=== PATIENT | female | born 1960 | race Caucasian/White ===

== ENCOUNTER 2018-04-15 19:02 | Emergency (ER) | payer MEDICARE, MEDICAID ==
[~2018-04-15 19:02] MED LIST: ALBU8.5H IH; ATEN-65 PO; BUPR-474 PO; CHOL10005 PO; CLON-1 PO; CYCL10TA29 PO; DIA5 PO; DICL-192 PO; ESCI20TA38 PO; FENO130C PO; FLUT1DIS27 INH; GABA-503 PO; GABA-549 PO; HYDR-2966 PO; HYDR-319 PO; HYDR-4305 PO; HYDR12.556 PO; IBUP800T37 PO; KET10 PO; LEVO-3 PO; LEVO88TA45 PO; LIO25 PO; METF-1 PO; METF-421 PO; METH-542 PO; METO25TA23 PO; OSE75 PO; OXYC-374 PO; OXYC-865 PO; PROM5SYR PO; QUET50TA24 PO; SIMV-49 PO; SIMV10TA98 PO; TRAZ50TA34 PO
--- NOTE | 2018-04-15 19:22 | ER Report ---
History and Physical Time Seen By MD: 19:06 Hx. of Stated Complaint: Pt fell off back of couch yesterday and states she landed on back. No LOC before or after fall. Pt reports current narcotic tx plan and nerve stimulator are not adressing pain. Pt also states she fell in bathtub 3 days ago. HPI/ROS CHIEF COMPLAINT: Back and neck injury HISTORY OF PRESENT ILLNESS: She and is a 58-year-old female who presents the ED with complaint of back and neck injury that occurred yesterday. She states that she was up on the armrest of her couch and chair putting up curtains and fell backwards onto her back. She states that she primarily has pain in her mid and lower back but is also complaining of some neck pain. She believes that she might of hit her head as well. She denies any LOC, nausea, vomiting, dizziness, vision changes. She states that she has chronic numbness and tingling of her bilateral hands. She states that she does have chronic back pain and does see a pain specialist. She states she has taken 2 oxycodone with no relief of her pain. She denies any bowel or bladder incontinence. REVIEW OF SYSTEMS: Constitutional: No fever, no chills. Eyes: No discharge. ENT: No sore throat. Cardiovascular: No chest pain, no palpitations. Respiratory: No cough, no shortness of breath. Gastrointestinal: No abdominal pain, no vomiting. Genitourinary: No hematuria. Musculoskeletal: See history of present illness. Skin: No rashes. Neurological: See history of present illness. Allergies: Coded Allergies: naproxen (Verified Allergy, Mild, TACHYCARDIA, 08/04/17) morphine (Unverified Allergy, Unknown, 08/04/17) ITCHING Home Meds Active Scripts Atenolol (ATENOLOL) 25 Mg Tablet, 1 TAB PO QDAY, #30 TAB 0 Refills Prov:CHARISSA DONALD MD 04/21/17 Reported Medications Levothyroxine Sodium (LEVOTHYROXINE SODIUM) 75 Mcg Tablet, 75 MCG PO QDAY, TAB 04/15/18 Quetiapine Fumarate (SEROQUEL XR) 150 Mg Tab.er.24h, 150 MG PO 04/15/18 Fenofibrate Nanocrystallized (FENOFIBRATE) 145 Mg Tablet, 145 MG PO QDAY 04/15/18 Metoprolol Succinate (METOPROLOL SUCCINATE) 25 Mg Tab.er.24h, 1 TAB PO QDAY, TAB 08/04/17 Cholecalciferol (Vitamin D3) (VITAMIN D3) 1,000 Unit Tablet, 1000 UNIT PO, TAB 08/04/17 Methocarbamol (ROBAXIN) 500 Mg Tablet, 1500 MG PO TID 08/04/17 Oxycodone Hcl/Acetaminophen (OXYCODON-ACETAMINOPHEN 7.5-325) 1 Each Tablet, 1 EACH PO Q6H Y for PAIN, TAB 04/21/17 Hydrochlorothiazide (HYDROCHLOROTHIAZIDE) 25 Mg Tablet, 1 TAB PO QDAY, TAB 04/26/16 Fluticasone/Salmeterol (ADVAIR 100-50 DISKUS) 1 Each Disk.w.dev, 1 PUFF INH QAM , #60 04/26/16 Gabapentin (GABAPENTIN) 300 Mg Capsule, 1500 MG PO QHS, CAPSULE 04/26/16 Gabapentin (GABAPENTIN) 300 Mg Capsule, 300 MG PO QAM, CAPSULE 04/26/16 Simvastatin (SIMVASTATIN) 20 Mg Tablet, 20 MG PO HS, TAB 04/26/16 Metformin Hcl (METFORMIN HCL) 1,000 Mg Tablet, 1 TAB PO BID, TAB 04/26/16 Escitalopram Oxalate (LEXAPRO) 20 Mg Tablet, 20 MG PO QDAY 10/17/15 Albuterol Sulfate 90 Mcg/Act (PROAIR HFA 90 MCG/ACT) 8.5 Gm Hfa.aer.ad, 1-2 PUFF IH 3-4XD 08/26/15 Trazodone Hcl (TRAZODONE HCL) 50 Mg Tablet, 50 MG PO QHS 08/26/15 Clonazepam (KLONOPIN) 1 Mg Tablet, 1 MG PO BID, #7 TAB 08/26/15 Bupropion Hcl (WELLBUTRIN XL) 300 Mg Tab.er.24h, 300 MG PO QDAY, TAB 08/26/15 Liothyronine Sodium (LIOTHYRONINE SODIUM) 25 Mcg Tablet, 25 MCG PO DAILY 08/26/15 Discontinued Reported Medications Levothyroxine Sodium (LEVOTHYROXINE SODIUM) 88 Mcg Tablet, 0.05 MCG PO QDAY 04/26/16 Quetiapine Fumarate (SEROQUEL XR) 50 Mg Tab.er.24h, 100 MG PO DAILY 11/30/15 Fenofibrate,Micronized (FENOFIBRATE) 130 Mg Capsule, 130 MG PO QDAY, CAPSULE 08/26/15 Discontinued Scripts Ketorolac Tromethamine (KETOROLAC TROMETHAMINE) 10 Mg Tab, 10 MG PO Q6H Y for PAIN, #12 TAB 0 Refills Prov:CHARISSA DONALD MD 01/19/17 Reviewed Nurses Notes: Yes Old Medical Records Reviewed: Yes Hx Smoking: Yes (1/3 ppd) Smoking Status: Current: Every Day Smoker Exposure to Second Hand Smoke?: Yes Hx Substance Use Disorder: No (COCAINE ABUSE 26 YEARS AGO) Hx Alcohol Use: No (ALCOHOL ABUSE 26 YRS AGO) Constitutional Vital Sign - Last 24 Hours 04/15/18 04/15/18 04/15/18 04/15/18 19:03 19:07 19:17 19:47 Temp 98.2 Pulse 85 73 72 Resp 16 B/P (MAP) 117/85 (96) 117/85 Pulse Ox 90 90 89 O2 Delivery Room Air 04/15/18 20:02 Pulse Ox 89 Physical Exam General Appearance: The patient is alert, has no immediate need for airway protection and no signs of toxicity. Patient appears to be in no acute distress. Eyes: Pupils equal and round no pallor or injection. ENT, Mouth: Mucous membranes are moist. Respiratory: There are no retractions, lungs are clear to auscultation. Cardiovascular: Regular rate and rhythm. Gastrointestinal: Abdomen is soft and non tender, no masses, bowel sounds normal. Neurological: Cranial nerves II through XII intact. Normal Romberg. Normal finger to nose test bilaterally. Skin: Warm and dry, no rashes. Musculoskeletal: Neck is supple non tender. There is left paravertebral lumbar, thoracic, cervical spine tenderness with palpation. No real midline tenderness appreciated. No ecchymosis or swelling noted. Equivocal bilateral straight leg raise test. 2+ patellar reflexes bilaterally. DIFFERENTIAL DIAGNOSIS: After history and physical exam differential diagnosis was considered for back pain including but not limited to muscular pain, herniated disc, spine fracture, intra-abdominal causes and urinary tract infection. Medical Decision Making EKG/Imaging Imaging C-Spine Xrays: IMPRESSION: 1. No acute osseous findings along the cervical spine. 2. Chronic degenerative changes, greatest at C5-C6 and C6-C7. Report Dictated By: Oh Lovell MD at 04/15/2018 7:56 PM Report E-Signed By: Oh Lovell MD at 04/15/2018 8:05 PM T and L Spine Xrays: IMPRESSION: 1. No acute osseous or acute alignment abnormality of the thoracic and lumbar spine. 2. Stable mild T12 vertebral compression fracture and diffuse multilevel degenerative disc space disease ED Course/Re-evaluation ED Course Will obtain lumbar, thoracic, cervical spine x-rays. Rudolph Head CT Rule = 0 = Unneccessary for Head CT NEXXUS Criteria for Cervical Spine = 0 = Unneccessary for CT C-Spine 04/15/2018 8:28:21 pm - discussed all x-ray results with patient. There is no acute fracture noted. There are some chronic degenerative changes and old compression fracture appreciated at T12. Advised that she may continue her oxycodone and Robaxin at home. Decision to Disposition Date: Apr 15, 2018 Decision to Disposition Time: 20:28 Depart Departure Latest Vital Signs Vital Signs Date Time Temp Pulse Resp B/P (MAP) Pulse Ox O2 Delivery O2 Flow Rate FiO2 04/15/18 20:02 89 04/15/18 19:47 72 04/15/18 19:07 98.2 16 117/85 Room Air Impression: Primary Impression: Low back pain Additional Impression: Neck pain Condition: Improved Disposition: HOME OR SELF-CARE Referrals: ALBERTO KANG DO (PCP) Patient Instructions: Back Pain (ED), Neck Pain (ED) Additional Instructions: Rest, ice, heat. Follow-up with primary care provider in 2-3 days. If having any worsening or concerning symptoms may return to the emergency department. May continue oxycodone and Robaxin at home. Problem Qualifiers Primary Impression: Low back pain Chronicity: unspecified Back pain laterality: left Sciatica presence: without sciatica Qualified Codes: M54.5 - Low back pain TAMMIE CASE PA-C Apr 15, 2018 19:22
[2018-04-15] MEDS ORDERED: QUET150T3 PO (19:49)
[2018-04-15] MEDS ORDERED: LEVO75TA73 PO (19:49)
[2018-04-15] MEDS ORDERED: FENO145T36 PO (19:49)
--- NOTE | 2018-04-15 20:10 | RADIOLOGY IMAGING REPORT ---
FACILITY: [facility] - [place] PATIENT NAME: Vita Pandey : 1960 MR: [id number] V: [id number] EXAM DATE: ORDERING PHYSICIAN: TAMMIE CASE TECHNOLOGIST: Location: [facility] - [place] Patient: Vita Pandey : 1960 Visit/Account:[id number] Date of Sevice: 04/15/2018 EXAMINATION: Cervical Spine 3 views HISTORY: Fall. Neck pain and back pain. COMPARISON: None. FINDINGS: No radiographic evidence of acute fracture or subluxation in the cervical spine. Normal alignment. Ve rtebral body height is maintained. Chronic multilevel degenerative changes. There is moderate disc space narrowing at C5-C6 and C6-C7, w ith endplate osteophyte formation. Mild disc space narrowing at C2-C3. Mild facet arthropathy along t he cervical facet joints. The dens appears radiographically intact. No prevertebral soft tissue swelling. IMPRESSION: 1. No acute osseous findings along the cervical spine. 2. Chronic degenerative changes, greatest at C5-C6 and C6-C7. Report Dictated By: Oh Lovell MD at 04/15/2018 7:56 PM Report E-Signed By: Oh Lovell MD at 04/15/2018 8:05 PM WSN:[id number]
--- NOTE | 2018-04-15 20:20 | RADIOLOGY IMAGING REPORT ---
FACILITY: [facility] - [place] PATIENT NAME: Vita Pandey : 1960 MR: [id number] V: [id number] EXAM DATE: ORDERING PHYSICIAN: TAMMIE CASE TECHNOLOGIST: [place] [facility] [place]: Vita Pandey : 1960 Visit/Account:[id number] Date of Sevice: 04/15/2018 LUMBAR SPINE 2 OR 3 VIEW, THORACIC SPINE 3 VIEWS Indication: Back pain., fall yesterday, back and neck pain Comparison: 09/16/2017 FINDINGS: Thoracic spine: The vertebral body heights and disc spaces are well maintained, there is a mild chronic compression d eformity of T12. Mid thoracic spinal stimulator is present.. There is no acute osseous or acute alignment abnormality. Mild marginal anterior osteophytes seen throughout the thoracic spine. Lumbar spine: There are 5 lumbar type vertebral bodies. There is no acute osseous or acute alignment abnormality. Moderate diffuse multilevel degenerative disc space disease is present. The vertebral body heights appear well-maintained. IMPRESSION: 1. No acute osseous or acute alignment abnormality of the thoracic and lumbar spine. 2. Stable mild T12 vertebral compression fracture and diffuse multilevel degenerative disc space dise ase Report Dictated By: Nam Vegas at 04/15/2018 8:01 PM Report E-Signed By: Nam Vegas at 04/15/2018 8:17 PM WSN:[id number]
--- NOTE | 2018-04-15 20:21 | RADIOLOGY IMAGING REPORT ---
FACILITY: [facility] PATIENT NAME: Vita Pandey : 1960 MR: [id number] V: [id number] EXAM DATE: ORDERING PHYSICIAN: TAMMIE CASE TECHNOLOGIST: Location: [facility] Patient: Vita Pandey : 1960 Visit/Account:[id number] Date of Sevice: 04/15/2018 LUMBAR SPINE 2 OR 3 VIEW, THORACIC SPINE 3 VIEWS Indication: Back pain., fall yesterday, back and neck pain Comparison: 09/16/2017 FINDINGS: Thoracic spine: The vertebral body heights and disc spaces are well maintained, there is a mild chronic compression d eformity of T12. Mid thoracic spinal stimulator is present.. There is no acute osseous or acute alignment abnormality. Mild marginal anterior osteophytes seen throughout the thoracic spine. Lumbar spine: There are 5 lumbar type vertebral bodies. There is no acute osseous or acute alignment abnormality. Moderate diffuse multilevel degenerative disc space disease is present. The vertebral body heights appear well-maintained. IMPRESSION: 1. No acute osseous or acute alignment abnormality of the thoracic and lumbar spine. 2. Stable mild T12 vertebral compression fracture and diffuse multilevel degenerative disc space dise ase Report Dictated By: Nam Vegas at 04/15/2018 8:01 PM Report E-Signed By: Nam Vegas at 04/15/2018 8:17 PM WSN:[id number]
[2018-04-15 20:36] VITALS: BP 114/68
== END 2018-04-15 20:37 | disposition home or self-care (01) ==
LOC: ER 19:09
DX: M54.5 Low back pain (principal); M54.2 Cervicalgia
CPT/HCPCS: 72040; 72072; 72100; 99283

== ENCOUNTER 2018-04-19 05:21 | Emergency (ER) | payer MEDICARE, MEDICAID ==
[~2018-04-19 05:21] MED LIST changes: +FENO145T36 PO; +LEVO75TA73 PO; +QUET150T3 PO
--- NOTE | 2018-04-19 05:24 | ER Report ---
History and Physical Time Seen By MD: 05:23 HPI/ROS CHIEF COMPLAINT: Headache, C-spine tenderness, right knee and right ankle pain HISTORY OF PRESENT ILLNESS: Patient is a 58-year-old female here status post fall yesterday at approximately 1500 hrs. while attempting to walk down steps into her house. Patient reportedly tripped and fell forward hitting her forehead on a door without loss of consciousness. Patient reports having neck tenderness, headache, right knee pain, right ankle pain which has prevented her from sleeping. Patient denies any focal neurological deficits, fevers, chest pain, shortness of breath, vomiting, abdominal pain, paresthesias. Patient reportedly fell several days ago off of her couch onto her back REVIEW OF SYSTEMS: Constitutional: No fever, no chills. Eyes: No discharge. ENT: No sore throat. Cardiovascular: No chest pain, no palpitations. Respiratory: No cough, no shortness of breath. Gastrointestinal: No abdominal pain, no vomiting. Genitourinary: No hematuria. Musculoskeletal: + neck and back pain, + right knee and ankle pain Skin: No rashes. Neurological: + headache. Allergies: Coded Allergies: naproxen (Verified Allergy, Mild, TACHYCARDIA, 08/04/17) morphine (Unverified Allergy, Unknown, 08/04/17) ITCHING Home Meds Reported Medications Levothyroxine Sodium (LEVOTHYROXINE SODIUM) 75 Mcg Tablet, 75 MCG PO QDAY, TAB 04/15/18 Quetiapine Fumarate (SEROQUEL XR) 150 Mg Tab.er.24h, 150 MG PO 04/15/18 Fenofibrate Nanocrystallized (FENOFIBRATE) 145 Mg Tablet, 145 MG PO QDAY 04/15/18 Metoprolol Succinate (METOPROLOL SUCCINATE) 25 Mg Tab.er.24h, 1 TAB PO QDAY, TAB 08/04/17 Cholecalciferol (Vitamin D3) (VITAMIN D3) 1,000 Unit Tablet, 1000 UNIT PO, TAB 08/04/17 Methocarbamol (ROBAXIN) 500 Mg Tablet, 1500 MG PO TID 08/04/17 Oxycodone Hcl/Acetaminophen (OXYCODON-ACETAMINOPHEN 7.5-325) 1 Each Tablet, 1 EACH PO Q6H Y for PAIN, TAB 04/21/17 Hydrochlorothiazide (HYDROCHLOROTHIAZIDE) 25 Mg Tablet, 1 TAB PO QDAY, TAB 04/26/16 Fluticasone/Salmeterol (ADVAIR 100-50 DISKUS) 1 Each Disk.w.dev, 1 PUFF INH QAM , #60 04/26/16 Gabapentin (GABAPENTIN) 300 Mg Capsule, 1500 MG PO QHS, CAPSULE 04/26/16 Gabapentin (GABAPENTIN) 300 Mg Capsule, 300 MG PO QAM, CAPSULE 04/26/16 Simvastatin (SIMVASTATIN) 20 Mg Tablet, 20 MG PO HS, TAB 04/26/16 Metformin Hcl (METFORMIN HCL) 1,000 Mg Tablet, 1 TAB PO BID, TAB 04/26/16 Escitalopram Oxalate (LEXAPRO) 20 Mg Tablet, 20 MG PO QDAY 10/17/15 Albuterol Sulfate 90 Mcg/Act (PROAIR HFA 90 MCG/ACT) 8.5 Gm Hfa.aer.ad, 1-2 PUFF IH 3-4XD 08/26/15 Trazodone Hcl (TRAZODONE HCL) 50 Mg Tablet, 50 MG PO QHS 08/26/15 Clonazepam (KLONOPIN) 1 Mg Tablet, 1 MG PO BID, #7 TAB 08/26/15 Bupropion Hcl (WELLBUTRIN XL) 300 Mg Tab.er.24h, 300 MG PO QDAY, TAB 08/26/15 Liothyronine Sodium (LIOTHYRONINE SODIUM) 25 Mcg Tablet, 25 MCG PO DAILY 08/26/15 Discontinued Reported Medications Levothyroxine Sodium (LEVOTHYROXINE SODIUM) 88 Mcg Tablet, 0.05 MCG PO QDAY 04/26/16 Quetiapine Fumarate (SEROQUEL XR) 50 Mg Tab.er.24h, 100 MG PO DAILY 08/26/15 Fenofibrate,Micronized (FENOFIBRATE) 130 Mg Capsule, 130 MG PO QDAY, CAPSULE 08/26/15 Discontinued Scripts Atenolol (ATENOLOL) 25 Mg Tablet, 1 TAB PO QDAY, #30 TAB 0 Refills Prov:CHARISSA DONALD MD 04/21/17 Ketorolac Tromethamine (KETOROLAC TROMETHAMINE) 10 Mg Tab, 10 MG PO Q6H Y for PAIN, #12 TAB 0 Refills Prov:CHARISSA DONALD MD 01/19/17 Hx Smoking: Yes (09/29 ppd) Smoking Status: Current: Every Day Smoker Exposure to Second Hand Smoke?: Yes Hx Substance Use Disorder: No (COCAINE ABUSE 26 YEARS AGO) Hx Alcohol Use: No (ALCOHOL ABUSE 26 YRS AGO) Constitutional Vital Sign - Last 24 Hours 04/19/18 04/19/18 04/19/18 04/19/18 05:26 05:26 05:36 06:06 Temp 98.8 Pulse 88 71 72 Resp 16 B/P (MAP) 138/86 (103) 138/86 Pulse Ox 89 86 O2 Delivery Room Air Physical Exam General Appearance: The patient is alert, has no immediate need for airway protection and no signs of toxicity. No acute distress Eyes: Pupils equal and round no pallor or injection. ENT, Mouth: Mucous membranes are moist. Respiratory: There are no retractions, lungs are clear to auscultation. Cardiovascular: Regular rate and rhythm. Gastrointestinal: Abdomen is soft and non tender, no masses, bowel sounds normal. Neurological: + headache, no focal neuro deficits Skin: + small contusion of forehead Musculoskeletal: Neck is supple + mild tenderness. Extremities are nontender, nonswollen and have full range of motion. DIFFERENTIAL DIAGNOSIS: After history and physical exam differential diagnosis was considered for contusion, fracture, concussion, dislocation Medical Decision Making EKG/Imaging Imaging See official radiology reports for further details ED Course/Re-evaluation ED Course Patient is a 58-year-old female here status post fall yesterday at approximately 1500 hrs. while attempting to walk down steps into her house. Patient reportedly tripped and fell forward hitting her forehead on a door without loss of consciousness. Patient reports having neck tenderness, headache , right knee pain, right ankle pain which has prevented her from sleeping. Patient denies any focal neurological deficits, fevers, chest pain, shortness of breath, vomiting, abdominal pain, paresthesias. Patient reportedly fell several days ago off of her couch onto her back. CT imaging of the head and C- spine were ordered due to mechanism. X-rays of the knee and right ankle were completed due to pain. Patient was given Zofran and Toradol for analgesia since the patient had driven here today. Depart Departure Latest Vital Signs Vital Signs Date Time Temp Pulse Resp B/P (MAP) Pulse Ox O2 Delivery O2 Flow Rate FiO2 04/19/18 06:06 72 86 04/19/18 05:26 98.8 16 138/86 Room Air Impression: Primary Impression: Fall Additional Impressions: Contusion Sprain Condition: Improved Disposition: HOME OR SELF-CARE Referrals: ALBERTO KANG DO (PCP) Patient Instructions: Contusion in Adults (ED), Fall Prevention (ED) Additional Instructions: Please follow-up with her family doctor in the next several days. Please read the attached literature regarding fall prevention. Please return promptly if you develop weakness, falls, worsening headache, neck pain. Problem Qualifiers BENJAMIN BAL DO Apr 19, 2018 05:24
[2018-04-19] MEDS ORDERED: ONDANSETRON 4 MG ODT TABDP SL ONE (05:40)
[2018-04-19] MEDS ORDERED: KETOROLAC 60 MG/2 ML VIAL IM ONE (05:40)
--- NOTE | 2018-04-19 07:01 | RADIOLOGY IMAGING REPORT ---
FACILITY: [facility] PATIENT NAME: Vita Pandey : 1960 MR: [id number] V: [id number] EXAM DATE: ORDERING PHYSICIAN: BENJAMIN BAL TECHNOLOGIST: Location: [facility] [place] Patient: Vita Pandey : 1960 Visit/Account:[id number] Date of Sevice: 04/19/[address] scan of the head for acute intracranial pathology. EXAMINATION: CT head/brain without contrast HISTORY: Fell TECHNIQUE: Contiguous axial images were obtained from the skull base to the vertex without intravenou s contrast. One of the following dose optimization techniques was utilized in the performance of this exam: Autom ated exposure control; adjustment of the mA and/or kV according to the patient's size; or use of an i terative reconstruction technique. Specific details can be referenced in the facility's radiology C T exam operational policy. COMPARISON STUDIES: 04/21/2017 FINDINGS: Ventricles/sulci/fissures: Midline in position and normal in configuration Masses/hemorrhage/midline shift: No hemorrhage. White matter: No white matter edema or contusion Mead-white differentiation: No cortical contusion or edema change. Extra-axial spaces: No subdural or epidural fluid collections. No subarachnoid blood Dural venous sinuses/arterial structures: Negative Skull base/calvarium: Negative Visualized mastoid air cells/paranasal sinuses: Negative IMPRESSION: Negative CT scan of the head Report Dictated By: Flaco Spivey MD at 04/19/2018 6:51 AM Report E-Signed By: Flaco Spivey MD at 04/19/2018 6:57 AM WSN:[id number]
--- NOTE | 2018-04-19 07:07 | RADIOLOGY IMAGING REPORT ---
FACILITY: [facility] - [place] PATIENT NAME: Vita Pandey : 1960 MR: [id number] V: [id number] EXAM DATE: ORDERING PHYSICIAN: BENJAMIN BAL TECHNOLOGIST: Location: [facility] - [place] Patient: Vita Pandey : 1960 Visit/Account:[id number] Date of Sevice: 04/19/2018 C-SPINE W/O CONTRAST EXAMINATION: CT cervical spine without Fall One of the following dose optimization techniques was utilized in the performance of this exam: Autom ated exposure control; adjustment of the mA and/or kV according to the patient's size; or use of an i terative reconstruction technique. Specific details can be referenced in the facility's radiology C T exam operational policy. COMPARISON STUDIES: None TECHNIQUE: Axial images were obtained from the skull base through the upper thoracic spine with IV co ntrast administration. Coronal and sagittal reformatted images were obtained from the axial source da ta. FINDINGS: Prevertebral soft tissues: Negative Alignment: Loss of the normal cervical lordosis with a maximal kyphotic curvature centered at the C5 level. There is 3 mm retrolisthesis of C fourth respect to C3 with degenerative nature. No fracture o r loosening of the posterior elements or facets. Vertebral bodies: No vertebral body compression deformities or fractures. Posterior elements: Posterior elements well-maintained with no facet fracture or disruption. There is advanced facet arthropathy noted on the right at the C3-4 level. Disc spaces: Relatively advanced disc space narrowing and degenerative changes at the C 5/6 and C6-7 levels. Visualized soft tissues anterior neck: Negative Visualized lung/mediastinum: Negative IMPRESSION: 1. Negative cervical spine for acute pathology. DJD changes as described with retrolisthesis of C fou rth respect to C3. Advanced facet arthropathy changes noted on the right at that level. Report Dictated By: Flaco Spivey MD at 04/19/2018 6:57 AM Report E-Signed By: Flaco Spivey MD at 04/19/2018 7:03 AM WSN:[id number]
--- NOTE | 2018-04-19 07:09 | RADIOLOGY IMAGING REPORT ---
FACILITY: [facility] - [place] PATIENT NAME: Vita Pandey : 1960 MR: [id number] V: [id number] EXAM DATE: ORDERING PHYSICIAN: BENJAMIN BAL TECHNOLOGIST: Location: [facility] Patient: Vita Pandey : 1960 Visit/Account:[id number] Date of Sevice: 04/19/2018 ANKLE 3 VIEW MIN RIGHT HISTORY: fall Three-view examination the right ankle. FINDINGS: No acute fracture. The distal right tibia and fibular well-maintained. Ankle mortise intact. No talar dome osteochondral defect. Old well-corticated probable avulsion from the distal fibula. Talus, calc aneus and mid foot structures well-maintained. Small degenerative dorsal spurring change at the tarso metatarsal articulation. Small plantar spurring change noted. IMPRESSION: 1. Negative right ankle for acute bony pathology. Report Dictated By: Flaco Spivey MD at 04/19/2018 7:03 AM Report E-Signed By: Flaco Spivey MD at 04/19/2018 7:05 AM WSN:[id number]
--- NOTE | 2018-04-19 07:10 | RADIOLOGY IMAGING REPORT ---
FACILITY: [facility] - [place] PATIENT NAME: Vita Pandey : 1960 MR: [id number] V: [id number] EXAM DATE: ORDERING PHYSICIAN: BENJAMIN BAL TECHNOLOGIST: Location: [facility] - [place] Patient: Vita Pandey : 1960 Visit/Account:[id number] Date of Sevice: 04/19/2018 KNEE 3 VIEW RIGHT HISTORY: fall Three-view examination of the right knee. FINDINGS: No acute bony pathology. Distal femur and proximal tibia/fibular well-maintained. Patellas well-maint ained with no patellar fracture. No joint effusion. Soft tissues unremarkable. IMPRESSION: 1. Negative right knee Report Dictated By: Flaco Spivey MD at 04/19/2018 7:05 AM Report E-Signed By: Flaco Spivey MD at 04/19/2018 7:06 AM WSN:[id number]
[2018-04-19] MEDS ORDERED: IBUPROFEN 600 MG TAB PO ONE (07:30)
[2018-04-19 07:32] VITALS: BP 101/72
== END 2018-04-19 07:36 | disposition home or self-care (01) ==
LOC: ER 05:25
DX: S00.83XA Contusion of other part of head, initial encounter (principal); W10.8XXA Fall (on) (from) other stairs and steps, initial encounter; Y92.008 Other place in unspecified non-institutional (private) residence as the place of occurrence of the external cause; Y99.8 Other external cause status; S83.91XA Sprain of unspecified site of right knee, initial encounter
CPT/HCPCS: 70450; 72125; 73562; 73610; 96372; 99285; A9270; J1885; Q0162; S0119

== ENCOUNTER 2018-09-28 09:03 | Emergency (ER) | payer MEDICARE, MEDICAID ==
[~2018-09-28 09:03] MED LIST changes: +GABA-503 PO; -GABA-533 PO
[2018-09-28] MEDS ORDERED: NITROGLYCERN* 50 MG/D5W 250 ML 250 ML ONE (09:13)
[2018-09-28] MEDS ORDERED: NS(*) 0.9% 1000 ML BAG 1,000 ML IV ONE ×2 (09:15→09:16)
[2018-09-28] MEDS ORDERED: ASPIRIN 81 MG CHEW CHEW STA (09:17)
[2018-09-28] MEDS ORDERED: TENECTEPLASE 50 MG KIT IVP ONE (09:20)
[2018-09-28] MEDS ORDERED: HEPARIN (PORC) 5000 UN/ML VIAL IVP ONE (09:20)
[2018-09-28] MEDS ORDERED: ONDANSETRON 4 MG/2 ML VIAL IVP PRN (09:20)
[2018-09-28] MEDS ORDERED: CLOPIDOGREL BISULFATE 75MG TAB PO ONE (09:20)
[2018-09-28] MEDS ORDERED: NITROGLYCERIN 0.4 MG SUBL SL ONE (09:20)
--- NOTE | 2018-09-28 09:24 | EKG ---
FACILITY: [facility] - [place] PATIENT NAME: KENJI COATS : [id number] MR: [id number] V: [id number] EXAM DATE: ORDERING PHYSICIAN: BRIANNA BENNETT TECHNOLOGIST: ANTONIO Manzano Reason : Blood Pressure : / mmHG Vent. Rate : 052 BPM Atrial Rate : 052 BPM P-R Int : 188 ms QRS Dur : 080 ms QT Int : 434 ms P-R-T Axes : 052 064 088 degrees QTc Int : [address] elevation, consider inferolateral injury or acute infarct ACUTE [place] / STEMI Abnormal ECG When compared with ECG of 21-APR-2017 18:39, ST elevation now present in Inferior leads Confirmed by Willem Devi ([id number]) on 09/28/2018 2:09:19 PM Referred By: Confirmed By:Willem Lauren
[2018-09-28] MEDS ORDERED: MORPHINE 4 MG/ML SDV IVP ONE (09:30)
[2018-09-28] MEDS ORDERED: fentaNYL CITR 100 MCG/2 ML AMP IVP ONE (09:40)
--- NOTE | 2018-09-28 09:43 | ER Report ---
History and Physical Time Seen By MD: 09:15 Hx. of Stated Complaint: SOB, ST elevation HPI/ROS CHIEF COMPLAINT: Chest pain HISTORY OF PRESENT ILLNESS: 58-year-old obese female history of hypertension diabetes smoker comes emergency [facility] with 30-45 minutes of pressure in her chest diaphoresis and mild psoas had shortness of breath. Patient states she's never had a cardiac issue in the past. Patient states she was out walking taking out some garbage and felt heaviness on her chest called 911 earlier in approximately 10-15 minutes on arrival to the emergency department she had obvious EKG changes and acute PA was identified a cardiac alert was activated in the field by EMS helicopter en route cardiology consulted patient received 1 dose of nitroglycerin which bottomed the pressure consistent with a right-sided PA started thrombolytics in the emergency department patient feeling better REVIEW OF SYSTEMS: Respiratory: No cough, no dyspnea. Cardiovascular: Chest pain or palpitation Gastrointestinal: No vomiting, no abdominal pain. Musculoskeletal: No back pain. Remainder of the 14 system rev: Yes Allergies: Coded Allergies: naproxen (Verified Allergy, Mild, TACHYCARDIA, 08/04/17) morphine (Unverified Allergy, Unknown, 08/04/17) ITCHING Home Meds Reported Medications Levothyroxine Sodium (LEVOTHYROXINE SODIUM) 75 Mcg Tablet, 75 MCG PO QDAY, TAB 04/15/18 Quetiapine Fumarate (SEROQUEL XR) 150 Mg Tab.er.24h, 150 MG PO 04/15/18 Fenofibrate Nanocrystallized (FENOFIBRATE) 145 Mg Tablet, 145 MG PO QDAY 04/15/18 Metoprolol Succinate (METOPROLOL SUCCINATE) 25 Mg Tab.er.24h, 1 TAB PO QDAY, TAB 08/04/17 Cholecalciferol (Vitamin D3) (VITAMIN D3) 1,000 Unit Tablet, 1000 UNIT PO, TAB 08/04/17 Methocarbamol (ROBAXIN) 500 Mg Tablet, 1500 MG PO TID 08/04/17 Oxycodone Hcl/Acetaminophen (OXYCODON-ACETAMINOPHEN 7.5-325) 1 Each Tablet, 1 EACH PO Q6H PRN for PAIN, TAB 04/21/17 Hydrochlorothiazide (HYDROCHLOROTHIAZIDE) 25 Mg Tablet, 1 TAB PO QDAY, TAB 04/26/16 Fluticasone/Salmeterol (ADVAIR 100-50 DISKUS) 1 Each Disk.w.dev, 1 PUFF INH QAM, #60 04/26/16 Gabapentin (GABAPENTIN) 300 Mg Capsule, 1500 MG PO QHS, CAPSULE 04/26/16 Gabapentin (GABAPENTIN) 300 Mg Capsule, 300 MG PO QAM, CAPSULE 04/26/16 Simvastatin (SIMVASTATIN) 20 Mg Tablet, 20 MG PO HS, TAB 04/26/16 Metformin Hcl (METFORMIN HCL) 1,000 Mg Tablet, 1 TAB PO BID, TAB 04/26/16 Escitalopram Oxalate (LEXAPRO) 20 Mg Tablet, 20 MG PO QDAY 10/17/15 Albuterol Sulfate 90 Mcg/Act (PROAIR HFA 90 MCG/ACT) 8.5 Gm Hfa.aer.ad, 1-2 PUFF IH 3-4XD 08/26/15 Trazodone Hcl (TRAZODONE HCL) 50 Mg Tablet, 50 MG PO QHS 08/26/15 Clonazepam (KLONOPIN) 1 Mg Tablet, 1 MG PO BID, #7 TAB 08/26/15 Bupropion Hcl (WELLBUTRIN XL) 300 Mg Tab.er.24h, 300 MG PO QDAY, TAB 08/26/15 Liothyronine Sodium (LIOTHYRONINE SODIUM) 25 Mcg Tablet, 25 MCG PO DAILY 08/26/15 Reviewed Nurses Notes: Yes Old Medical Records Reviewed: Yes Hx Smoking: Yes (09/29 ppd) Smoking Status: Current: Every Day Smoker Exposure to Second Hand Smoke?: Yes Hx Substance Use Disorder: No (COCAINE ABUSE 26 YEARS AGO) Hx Alcohol Use: No (ALCOHOL ABUSE 26 YRS AGO) Constitutional Vital Sign - Last 24 Hours 09/28/18 09:03 Temp 97.5 Pulse 61 Resp 16 B/P (MAP) 109/79 Pulse Ox 91 O2 Delivery Room Air Physical Exam General Appearance: The patient is alert, has no immediate need for airway protection and no current signs of toxicity. Uncomfortable diaphoretic Eyes: Pupils equal and round no injection. Respiratory: Chest is non tender, lungs are clear to auscultation. Cardiac: regular rate and rhythm [ ] Gastrointestinal: Abdomen is soft and non tender, no masses, bowel sounds normal. Musculoskeletal: Neck: Neck is supple and non tender. Extremities have full range of motion and are non tender. Skin: No rashes or lesions. [ ] DIFFERENTIAL DIAGNOSIS: After history and physical exam differential diagnosis was considered for acute myocardial infarction Medical Decision Making Data Points Laboratory Hematology Test 09/28/18 09:35 Chemistry Test 09/28/18 09:35 Coagulation Test 09/28/18 09:35 ED Course/Re-evaluation ED Course ED clinical course 58-year-old obese female diabetic hypertensive comes emergency Department today with an acute PA right-sided patient given 1 nitroglycerin in the field had a loss of blood pressure resuscitated with fluids feels better IV Nitrol held at this time thrombo-lytics initiated cardiac consult helicopter en route patient will be transported to a [facility] facility for definitive therapy diagnosis acute PA Decision to Disposition Date: Sep 28, 2018 Decision to Disposition Time: 09:43 Depart Departure Latest Vital Signs Vital Signs Date Time Temp Pulse Resp B/P (MAP) Pulse Ox O2 Delivery O2 Flow Rate FiO2 09/28/18 09:03 97.5 61 16 109/79 91 Room Air Impression: Primary Impression: Myocardial infarction Condition: Improved Disposition: XFER TO ACUTE [facility]ARE [facility] Referrals: ALBERTO KANG DO (PCP) BRIANNA BENNETT MD Sep 28, 2018 09:43
[2018-09-28 09:45] VITALS: BP 95/70
[2018-09-28 09:47] LABS: PLATELET COUNT, AUTOMATED 321 K/uL (150-450)
[2018-09-28 09:51] LABS: INR 1.06
--- NOTE | 2018-09-28 09:53 | EKG ---
FACILITY: [facility] - [place] PATIENT NAME: KENJI COATS : [id number] MR: [id number] V: [id number] EXAM DATE: ORDERING PHYSICIAN: BRIANNA BENNETT TECHNOLOGIST: LINNETTE Manzano Reason : DE REPEAT Blood Pressure : / mmHG Vent. Rate : 051 BPM Atrial Rate : 051 BPM P-R Int : 184 ms QRS Dur : 084 ms QT Int : 480 ms P-R-T Axes : 032 084 005 degrees QTc Int : 442 ms Sinus bradycardia Nonspecific T wave abnormality Abnormal ECG When compared with ECG of 09.28.2018 @ [address] elevation in inferior leads absent Confirmed by Willem Devi ([id number]) on 09/28/2018 2:11:44 PM Referred By: SABRINA Confirmed By:Willem Lauren
--- NOTE | 2018-09-28 10:43 | RADIOLOGY IMAGING REPORT ---
FAC[place] [facility] [place]IENT NAME: Vita Pandey : 1960 MR: [id number] V: [id number] EXAM DATE: ORDERING PHYSICIAN: BRIANNA BENNETT TECHNOLOGIST: Location: [facility] - [place] Patient: Vita Pandey : 1960 Visit/Account:[id number] Date of Sevice: 09/28/2018 EXAMINATION: Chest radiograph HISTORY: Myocardial infarction COMPARISON: October 30, 2016, 09/07/2015 FINDINGS: Frontal view obtained. Lines/tubes: Spinal stimulator leads project over the mid thoracic spine as before. Cardiomediastinal silhouette: Normal. Lungs/pleura: Small opacity adjacent to the left lower heart border projecting over the left lower l daja appears increased in conspicuity when compared to prior. Bony structures/chest wall: No significant abnormality. IMPRESSION: Small opacity adjacent to the left lower heart border projecting over the left lower lung is more con spicuous when compared to prior. This is favored to represent benign epicardial fat which is more visible on current exam secondary to slight positional differences. A focal area of new consolidation or atelectasis cannot be entirely e xcluded. Short-term chest radiograph follow-up may be warranted to evaluate for stability. Report Dictated By: Reinier Mccurdy MD at 09/28/2018 10:36 AM Report E-Signed By: Reinier Mccurdy MD at 09/28/2018 10:39 AM WSN:[id number]
--- NOTE | 2018-09-29 14:08 | EKG ---
FACILITY: [facility] PATIENT NAME: KENJI COATS : [id number] MR: [id number] V: [id number] EXAM DATE: ORDERING PHYSICIAN: BRIANNA BENNETT TECHNOLOGIST: LINNETTE Manzano Reason : STEMMI Blood Pressure : / mmHG Vent. Rate : 059 BPM Atrial Rate : 059 BPM P-R Int : 202 ms QRS Dur : 086 ms QT Int : 442 ms P-R-T Axes : 044 046 085 degrees QTc Int : 437 ms Sinus bradycardia Inferolateral ST elevation consistent with acute ischemia ACUTE NC Abnormal ECG Confirmed by STEVE DE LA GARZA ([id number]) on 09/29/2018 3:58:36 PM Referred By: SABRINA Confirmed By:STEVE DE LA GARZA
== END 2018-09-28 09:50 | disposition short-term general hospital (02) ==
LOC: ER 09:23
DX: I21.9 Acute myocardial infarction, unspecified (principal); F17.210 Nicotine dependence, cigarettes, uncomplicated
CPT/HCPCS: 36416; 71045; 82948; 84484; 85025; 85610; 85730; 93005; 96374; 96375; 99285; A9270; J1644; J2405; J3010; J3101; J7030; 82040; 82247; 82310; 82374; 82435; 82565; 82947; 84075; 84132; 84155; 84295; 84450; 84460; 84520

== ENCOUNTER → 2018-09-28 | Outpatient (CLI) | payer MEDICARE ==
[~2018-09-28] MED LIST changes: -GABA-503 PO; +GABA-533 PO; -HYDR-4305 PO; +HYDR-627 PO; -METF-421 PO; +METF-452 PO
== END ==
LOC: AMB 08:39
PROVIDERS: ATTEND Nurse Practitioner
DX: R06.02 Shortness of breath (principal); R07.89 Other chest pain; M79.602 Pain in left arm; R07.0 Pain in throat; I95.9 Hypotension, unspecified
CPT/HCPCS: A0425; A0427

== ENCOUNTER → 2018-09-28 | Outpatient (REF) | LOC: AMB 09:30 | PROVIDERS: ATTEND Nurse Practitioner | DX: I21.19 ST elevation (STEMI) myocardial infarction involving other coronary artery of inferior wall (principal) ==

== ENCOUNTER 2018-10-05 13:00 | Outpatient (RCR) | payer MEDICARE, MEDICAID ==
[~2018-10-05 13:00] MED LIST changes: -GABA-503 PO; +GABA-533 PO
[2018-10-05 15:53] VITALS: BP 100/78
[2018-10-05 15:54] VITALS: BP 94/76
--- NOTE | 2018-10-05 16:38 | CARDIAC REHAB PLAN OF CARE ---
Physician: Uriel Pelaez MD Patient is being seen: Malgorzata Lea Medical Diagnosis: STEMI; PTCA x 2 Date of Onset: 09/28/18 Date of Initial Evaluation: 10/05/18 INTERVENTIONS: Due Date: 11/05/18 Patient Assessment: Patient is a 58yr old female who comes to cardiac rehab following a STEMI and PTCA x 2 placement on September 28, 2018. The patient has an extensive medical history including: HTN, high triglycerides, asthma, and T2D. She is obese (current BMI 31.3kg/m2) and reports smoking 1/2pk of cigarettes/day. She has a history of heavy alcohol and cocaine abuse, quitting 29 yrs ago. Currently she is physically inactive and does not eat a heart healthy diet, and is being medically treated for anxiety and depression. Upon her initial evaluation, the patient does seem moderately motivated to begin the program. Her goals include losing weight and strengthening/toning her musculature. Concern areas for physical activity would be her chronic back painwhich is being treated with both medication and an implanted nerve stimulus. Exercise Assessment: The patient reports performing no regular physical activity, stating her back causes her too much pain. During her 6-Minute walk test, she walked a total of 1200ft with no stops for an average speed of 2.27mph. While using exercise equipment her HR averaged between 106-119bpm and her blood pressure saw a normal increase to 126/72mmHg. Her SPO2 dropped to 88% while exercising, coinciding with a reported SOB of +1. The patient is significantly deconditioned and will benefit from a slow progressing exercise program. Exercise Plan: Goals: Patient goals during the program are to lose weight (ideal weight of 150lbs) and tone/strengthen her musculature. As her healthcare providers, our goals will be to gradually increase her exercise tolerance to 40+ minutes of continuous exercise/session with an average MET level above 4.0. Exercise Prescription: Mode: 1. NuStep 2. Recumbent bike 3. Treadmill Frequency: 3 days/week (MWF) Duration: Beginning with 25 minutes. First month goal of achieving 40 minutes/session on average Intensity: Between 3.0-3.5 METs on average. Education: Patient will begin by being educated on how to subjectively determine intensity and how to pace herself during exercise. This will be followed by encouragement of leisure activity at home being done in 10 minute bouts. Exercise Reassessment (Date: ): Exercise Discharge/Follow-Up (Date: ): Nutrition Assessment: The patient has difficulty discussing nutrition and appears somewhat resistant to changing her current diet. Her current diet consists of convenience foods (frozen meals, snack foods). She is inconsistent in her food reporting. To counteract this, she has been given a food journal to record what she eats so that we may better provide nutritional counseling. Barriers to healthy nutrition include cost and food preparation. Nutrition Plan: Goals: Our first goals are to help facilitate nutritional awarenesshaving the patient be more aware of what she is eating and what she should be eating. Our second goal will be to make small adjustments to her diet to make it more heart healthy. Intervention: Our first intervention will be providing the patient with food journals so that she may track her food intake and be more aware of her consumption. Second intervention will include trying to incorporate more heart healthy foods into her current diet, specifically whole grains and vegetables. Education: Education will focus on how to eat healthy on a budget and healthy recipes with minimal preparation. Nutrition Reassessment (Date: ): Nutrition Discharge/Follow-Up (Date: ): Psychosocial Assessment: Patient did not complete her HADS (hospital anxiety and depression scale) assessment upon her initial eval (due to not having her reading glasses). She will complete this on her first day at rehab and we will report this at her first reassessment. However, she is currently being treated for anxiety and depression both medicinally and by seeing a therapist. Psychosocial Plan: Goals: Our goals will be to provide support for the patient and foster a safe learning environment for her to exercise within. Intervention: Intervention tactics for the first month will include getting to know the patient and creating a social connection with her and helping foster that with her fellow classmates. Education: Education will focus on how additional stress can prevent the heart from healing and how stress can impact overall CAD. Psychosocial Reassessment (Date: ): Psychosocial Discharge/Follow-Up (Date: ): Smoking Cessation Assessment: Patient has been smoking for approximately 40 years and currently reports smoking 1/2pk/day. She does aim to quit someday but reports enjoying itshe justifies it by saying it keeps her away from alcohol and cocaine. Her best friend smokes as well, and she says they would someday like to quit together. Smoking Cessation Plan: Goals: Our goals will be to track helper the patient in quitting smoking by the end of the program. Intervention: We will aim to encourage her to involve her friend in quitting smoking with her. Education: We will provide educational materials on how to best quit smoking all together and how else to relieve her stress in ways that are healthier. Smoking Cessation Reassessment (Date: ): Smoking Cessation Discharge/Follow-Up (Date: ): Weight Management Assessment: Patient currently weighs 188lbs. At 57 this puts her BMI at 31.3 kg/m2, which classifies her as obese. The patient would ideally like to weight 150lbswhich would require her to lose approx.. 20% of her overall masswhich is extremely difficult to do and not healthy to accomplish in such a short amount of time. Weight Management Plan: Goals: Our goal will be to provide education on how exercise and healthy eating together can aid towards weight loss. We will also encourage towards a healthier weight loss goal. Intervention: Our intervention will focus on dietary habits and increasing physical activity levels to track helper in a 5% weight loss goal, which amounts to 9.4lbs. Education: Education will focus on dietary intake vs. caloric burn and healthy goal setting for weight loss. Weight Management Reassessment (Date: ): Weight Management Discharge/Follow-Up (Date: ): Physician Signature: Date: MTDD
== END 2018-10-05 18:00 | disposition home or self-care (01) ==
LOC: CARD 13:00
PROVIDERS: ATTEND Internal Medicine Cardiovascular Disease
DX: I25.2 Old myocardial infarction (principal); I25.10 Atherosclerotic heart disease of native coronary artery without angina pectoris; I10 Essential (primary) hypertension; G62.9 Polyneuropathy, unspecified; Z96.9 Presence of functional implant, unspecified; Z95.5 Presence of coronary angioplasty implant and graft; J45.909 Unspecified asthma, uncomplicated; M54.9 Dorsalgia, unspecified; F17.210 Nicotine dependence, cigarettes, uncomplicated; E11.9 Type 2 diabetes mellitus without complications; E66.9 Obesity, unspecified; F32.9 Major depressive disorder, single episode, unspecified; F41.9 Anxiety disorder, unspecified

== ENCOUNTER → 2018-12-02 | Outpatient (CLI) | payer MEDICARE, MEDICAID ==
[~2018-12-02] MED LIST changes: -QUET150T3 PO; +QUET150T4 PO; +QUET50TA PO; -QUET50TA24 PO
[2018-12-02 12:43] LABS: LDL CHOLESTEROL 61 mg/dl
== END ==
LOC: LAB 11:36
PROVIDERS: ATTEND Internal Medicine Cardiovascular Disease
DX: I24.9 Acute ischemic heart disease, unspecified (principal)
CPT/HCPCS: 36415; 82040; 82247; 82310; 82374; 82435; 82465; 82565; 82947; 83718; 84075; 84132; 84155; 84295; 84450; 84460; 84478; 84520

== ENCOUNTER → 2019-01-26 | Outpatient (CLI) | payer MEDICARE, MEDICAID | LOC: US 01-02 01:02 | PROVIDERS: ATTEND Internal Medicine Cardiovascular Disease | DX: I51.7 Cardiomegaly (principal) | CPT/HCPCS: 93306 ==

== ENCOUNTER → 2019-04-06 | Outpatient (CLI) | payer MEDICARE, MEDICAID ==
[~2019-04-06] MED LIST changes: -LIO25 PO; +LIOT25TA PO; -TRAZ50TA34 PO; +TRAZ50TA52 PO
== END ==
LOC: LAB 10:41
PROVIDERS: ATTEND Internal Medicine Cardiovascular Disease
DX: I24.9 Acute ischemic heart disease, unspecified (principal); I21.11 ST elevation (STEMI) myocardial infarction involving right coronary artery; I10 Essential (primary) hypertension; E66.9 Obesity, unspecified; N17.9 Acute kidney failure, unspecified; E78.1 Pure hyperglyceridemia
CPT/HCPCS: 36415; 82040; 82247; 82310; 82374; 82435; 82465; 82565; 82947; 83718; 84075; 84132; 84155; 84295; 84450; 84460; 84478; 84520